=== PATIENT | female | born 1975 | race African-American/Black ===

== ENCOUNTER 2017-04-11 22:08 | Emergency (ER) | payer OTHER ==
[~2017-04-11 22:08] MED LIST: DICLOFENAC PO; FLEXERIL10 M1 PO; NAPROSYN500 MG PO; NORCO 5/325 TAB1 TAB PO; VOLTAREN75 MG PO
[2017-04-11] MEDS ORDERED: ZESTORETIC (22:17)
== END 2017-04-12 00:30 | disposition home or self-care (01) ==
LOC: SED 22:08
DX: K12.2 Cellulitis and abscess of mouth (principal); I10 Essential (primary) hypertension; F17.200 Nicotine dependence, unspecified, uncomplicated
CPT/HCPCS: 87651; 99283

== ENCOUNTER 2017-07-28 12:34 | Emergency (ER) | payer OTHER ==
[~2017-07-28] VITALS: Ht 167.6 cm; Wt 114.8 kg
--- NOTE | ~2017-07-28 | CR72 ---
[facility] A Service of [facility] & [facility] RADIOLOGY TEXT RESULTS PATIENT: MARGE PENG LOCATION: [facility] : 71 UNIT #: [id number] AGE: [address]: Wiley Mckay MD SEX: F ORDER DR: [id number] [facility] [address] [place], [place] [address] [id number] E MR#: [id number] Acc #: [id number] NAME: MARGE PENG : 1975 SEX: F STUDY DATE/TIME: 07/28/2017 15:38 UNIT: [facility] ROOM: STUDY DESCRIPTION: CR Chest Single View Portable Attending Physician: Wiley Mckay M.D. Ordering Physician: Wiley Mckay M.D. Primary Care Physician: John Yañez M.D. MEDICAL IMAGING REPORT This report is preliminary unless electronic signature is present EXAM AP radiograph of the chest. HISTORY Dyspnea. Short of air. Numbness and tingling on left side. Began today. Former smoker. FINDINGS AP radiograph of the chest is presented. The heart is mildly enlarged. Stable. Lungs are well inflated. There is no evidence of acute infectious or inflammatory disease, pleural effusion or pneumothorax. No suspicious nodule. No acute-appearing bony abnormality. Dictated by... Rich Zelaya M.D. THIS IS AN ELECTRONICALLY VERIFIED REPORT Rich Zelaya M.D. at 07/29/2017 6:19 PM CHERI/paz TD: 07/28/2017 22:23 JOB #: [id number] MEDICAL IMAGING REPORT Page 1 of 1 COPY
--- NOTE | ~2017-07-28 | CT71 ---
[facility] A Service of [facility] RADIOLOGY TEXT RESULTS PATIENT: MARGE PENG LOCATION: [facility] : 71 UNIT #: [id number] AGE: [address]: Wiley Mckay MD SEX: F ORDER DR: [id number] [facility] [address] [place], [place] [address] [id number] E MR#: [id number] Acc #: [id number] NAME: MARGE PENG : 1975 SEX: F STUDY DATE/TIME: 07/28/2017 16:25 UNIT: [facility] ROOM: STUDY DESCRIPTION: CT Head Wo Contrast Attending Physician: Wiley Mckay M.D. Ordering Physician: Wiley Mckay M.D. Primary Care Physician: John Yañez M.D. MEDICAL IMAGING REPORT This report is preliminary unless electronic signature is present EXAM CT head without contrast, 07/28/2017. HISTORY 42-year-old female with left-sided tingling and forgetfulness for 3 days. Confusion beginning today. COMPARISON None. TECHNIQUE Routine unenhanced axial images performed through the brain. This CT exam was performed with one or more of the following radiation dose reduction techniques: automatic exposure control, adjustment of mA and/or kV according to patient size, and iterative reconstruction. FINDINGS No hemorrhage, acute infarction, mass lesion, or abnormal extraaxial fluid collection. No midline shift or focal mass effect. Ventricular system normal in size and configuration. No acute bony abnormality. Visualized paranasal sinuses and mastoid air cells are clear. IMPRESSION No acute intracranial abnormality. Dictated by... Ahsan Davis M.D. THIS IS AN ELECTRONICALLY VERIFIED REPORT Ahsan Davis M.D. at 07/29/2017 1:21 PM SELENA/paz [facility] A Service of [facility] RADIOLOGY TEXT RESULTS PATIENT: MARGE PENG LOCATION: [facility] : 71 UNIT #: [id number] AGE: [address]: Wiley Mckay MD SEX: F ORDER DR: TD: 07/28/2017 22:05 JOB #: [id number] MEDICAL IMAGING REPORT Page 1 of 1 COPY
--- NOTE | ~2017-07-28 | EKG ---
PATIENT: MARGE PENG UNIT #: [id number] Ventricular Rate: 65 BPM Atrial Rate: 65 BPM P-R Interval: 156 ms QRS Duration: 82 ms Q-T Interval: 430 ms QTC Calculation(Bezet): 447 ms P Jackson: 48 degrees Calculated R Jackson: 18 degrees Calculated T Jackson: 25 degrees Diagnosis Line: Normal sinus rhythm Diagnosis Line: Normal ECG Diagnosis Line: When compared with ECG of 03-OCT-2015 13:17, Diagnosis Line: No significant change was found Diagnosis Line: Confirmed by DARLENE BRIDGES MD ([id number]) on Diagnosis Line: 07/29/2017 4:42:55 PM INTERPRETING MD: KATI
[~2017-07-28 12:34] MED LIST changes: +ZESTORETIC
[2017-07-28 15:40] LABS: BASOPHIL# 0.1 X10e3 (0-0.3); BASOPHIL% 0.8 % (0-2.5); EOSINOPHIL# 0.2 X10e3 (0-0.7); EOSINOPHIL% 2.6 % (0.0-7.0); HEMATOCRIT 37.6 % (35.0-45.0); HEMOGLOBIN 12.6 gm/dL (12.0-16.0); LYMPHOCYTE# 3.2 X10e3 (1.0-3.5); LYMPHOCYTE% 42.8 % (17.0-45.0); MEAN CELL VOLUME 82.5 FL (83-96); MEAN CORPUSCULAR HEMOGLOBIN 27.6 PG (28-34); MEAN CORPUSCULAR HGB CONC 33.4 g/dL (30-36); MONOCYTE# 0.5 X10e3 (0-1.0); MONOCYTE% 6.5 % (3.0-12.0); NEUTROPHIL# 3.5 X10e3 (1.5-7.1); NEUTROPHIL% 47.3 % (40-75); PLATELET COUNT 350 X10e3 (140-420); RED BLOOD COUNT 4.55 X10e (3.90-5.30); RED CELL DISTRIBUTION WIDTH 15.1 % (11.0-15.5); WHITE BLOOD COUNT 7.5 X10e3 (4.0-10.5)
[2017-07-28 15:44] LABS: DIFF IND NO
[2017-07-28 15:56] LABS: POC - CKMB 1.8 ng/mL (0.0-7.9); POC - TROPONIN <0.05 ng/mL (<=0.05)
[2017-07-28 16:03] LABS: ALBUMIN SERUM 4.1 g/dL (3.5-5.0); BILIRUBIN, DIRECT 0.2 mg/dL (0.0-0.2); BILIRUBIN,INDIRECT 0.5 mg/dL (0.0-0.9); BILIRUBIN,TOTAL 0.7 mg/dL (0.2-2.0); BUN/CREATININE RATIO 11.42; CALCIUM SERUM 8.5 mg/dL (8.4-10.2); CREATININE SERUM 0.7 mg/dL (0.6-1.4); GLOM FILT RATE Estimated 122.1 mL/min (>60); POTASSIUM 3.8 mmol/L (3.5-5.1); PROTEIN TOTAL SERUM 7.5 g/dL (6.0-8.3)
[2017-07-28 16:06] LABS: PARTIAL THROMBOPLASTIN TIME 29.4 SECONDS (23.5-31.3); PROTHROMBIN TIME (PATIENT) 10.4 SECONDS (10.0-11.7)
== END 2017-07-28 17:31 | disposition home or self-care (01) ==
LOC: CED 12:34
PROVIDERS: Emergency Medicine
DX: R20.2 Paresthesia of skin (principal); H43.392 Other vitreous opacities, left eye; R06.00 Dyspnea, unspecified; I10 Essential (primary) hypertension; F17.210 Nicotine dependence, cigarettes, uncomplicated; Z98.51 Tubal ligation status
CPT/HCPCS: 36415; 70450; 71010; 80048; 80076; 82553; 82947; 84484; 85025; 85610; 85730; 93005; 99285